=== PATIENT | male | born 1970 | race Caucasian/White ===

== ENCOUNTER 2021-04-22 15:30 | Emergency (ER) | payer SELFPAY ==
[2021-04-22 15:45] VITALS: BP 143/93; PULSE 98; RESP 18; TEMP 36.9; O2SAT 97; BMI 41.1
--- NOTE | 2021-04-22 19:07 | ED.DENTAL ---
HPI - Dental/Oral General Chief complaint: Dental/Oral Stated complaint: broken tooth pain Time Seen by Provider: 04/22/21 19:07 Related Data Previous Rx's Medication Instructions Recorded amoxicillin 875 mg-potassium 1 tab PO BID #20 tab 04/22/21 clavulanate 125 mg tablet (Augmentin) Allergies Allergy/AdvReac Type Severity Reaction Status Date / Time No Known Allergies Allergy Verified 04/22/21 15:43 PMF Past Medical History Medical History (Updated 04/23/21 @ 00:01 by Don Narvaez) No pertinent past medical history Social History Social History Advance Directives: No Advance Directives Information Provided: Yes Physical Exam Vital Signs: Vital Signs: Last Vital Signs Temp 98.4 F 04/22/21 15:45 Pulse 98 04/22/21 15:45 Resp 18 04/22/21 15:45 BP 143/93 H 04/22/21 15:45 Pulse Ox 97 04/22/21 15:45 BMI result Body Mass Index 41.1 Discharge Plan Discharge Clinical Impression: Dental caries Patient Disposition: Home, Self-Care Instructions: Toothache (ED) Additional Instructions: Take antibiotics as advised and follow with dentist Prescriptions: New amoxicillin-pot clavulanate [Augmentin] 875-125 mg tablet 1 tab PO BID Qty: 20 RF: 0 Stand Alone Forms: Work/School Release Interventions: ED Discharge Assessment Last Done: 04/22/21 20:30 Discharge Date/Time: 04/22/21 20:32
[2021-04-22] MEDS: Amoxicillin/Potassium Clav 875 MG TABLET PO (20:10)
== END 2021-04-22 20:32 | disposition home or self-care (01) ==
PROVIDERS: Emergency Provider Internal Medicine
DX: K02.9 Dental caries, unspecified (principal); K03.81 Cracked tooth
CPT/HCPCS: 99283